=== PATIENT | female | born 1975 | race African-American/Black ===

== ENCOUNTER → 2018-11-12 | Outpatient (CLI) | payer BC ==
--- NOTE | 2018-11-12 14:00 | KCIC ---
STUDY: MRI of the left knee without contrast INDICATION: Anterior left knee pain and swelling. No reported injury. COMPARISON: None. TECHNIQUE: Multiplanar MR imaging of the left knee performed without the use of intravenous or intra-articular contrast. FINDINGS: Menisci: The lateral meniscus is intact. Free edge irregularity of the medial meniscus without full thickness tear. Cruciate ligaments: The ACL and PCL are intact. Collateral ligaments: No acute injury of the medial or lateral collateral ligaments. Tendons: The extensor tendon complex is intact. The additional tendons at the knee are intact as well. Cartilage: Patellofemoral: Patellar chondrosis to include a near full-thickness fissure along the lateral aspect of the median ridge. High-grade chondrosis at the mid to inferior aspect of the medial trochlea, well seen on image 14 series 6. Lateral compartment: No full-thickness chondral defect. Medial compartment: Medial compartment chondrosis with high-grade chondral thinning at the weightbearing aspect. Bones: No acute fracture. No suspicious marrow signal abnormality. Small medial joint line osteophytes. Miscellaneous: Large knee joint effusion with some synovitis. Trace Cancino's cyst. Lymph node anterior to the vasculature at the level of the distal femur measuring 6 mm in short axis dimension. IMPRESSION: 1. Some free edge irregularity of the medial meniscus without full thickness tear. The lateral meniscus is intact. 2. 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 3. Large effusion with some synovitis. Trace Cancino's cyst. Electronically signed by: GUSTAVO PARADA MD (11/12/2018 1:58 PM) [id number]
== END | disposition home or self-care (01) ==
LOC: KCIC MRI 12:45
PROVIDERS: ATTEND Physician Assistant Surgical
DX: M25.762 Osteophyte, left knee (principal); M25.462 Effusion, left knee; M71.22 Synovial cyst of popliteal space [Baker], left knee; Z90.89 Acquired absence of other organs; Z96.0 Presence of urogenital implants
CPT/HCPCS: 73721